=== PATIENT | female | born 1955 | race Caucasian/White ===

== ENCOUNTER 2017-02-17 23:03 | Emergency (ER) | payer BC, OTHER ==
[2017-02-18 01:04] VITALS: BP 105/74
--- NOTE | 2017-02-18 01:52 | EDM.PDOC ---
ED HPI GENERAL MEDICAL PROBLEM - General Chief Complaint: Chest Pain Stated Complaint: CHEST PAINS SOB Time Seen by Provider: 02/17/17 23:31 Source of Information: Reports: Patient History Limitations: Reports: No Limitations - History of Present Illness INITIAL COMMENTS - FREE TEXT/NARRATIVE: This patient complained of sudden onset of mid chest pain lasted about 10 or 15 minutes. She broke out in sweats. Pain radiated to her left shoulder. It came back later lasted about 5 minutes she also had some nausea. She denies any history of heart disease. Her father did have a bypass. This patient has had a cholecystectomy. Her family members note that this happened right after a meal. She denies any smoking. 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 ED EXAM, GENERAL - Physical Exam Exam: See Below Exam Limited By: No Limitations General Appearance: Alert, WD/WN, No Apparent Distress Eye Exam: Bilateral Eye: Normal Inspection Throat/Mouth: Normal Inspection Head: Atraumatic Neck: Normal Inspection Respiratory/Chest: No Respiratory Distress, Lungs Clear Cardiovascular: Normal Peripheral Pulses, Regular Rate, Rhythm, No Murmur GI/Abdominal: Soft, Non-Tender Back Exam: Normal Inspection Extremities: Normal Inspection Neurological: Alert, Oriented Psychiatric: Normal Affect Skin Exam: Warm, Dry Course - Vital Signs Last Recorded V/S: Last Vital Signs Temp 35.5 C 02/17/17 23:22 Pulse 76 02/18/17 00:55 Resp 20 02/18/17 00:55 BP 105/74 02/18/17 00:55 Pulse Ox 97 02/18/17 00:55 - Orders/Labs/Meds Labs: Laboratory Tests 02/17/17 02/17/17 02/18/17 Range/Units 23:42 23:42 00:40 WBC 4.9 (4.5-11.0) K/uL RBC 3.77 (3.30-5.50) M/uL Hgb 10.8 L (12.0-15.0) g/dL Hct 33.7 L (36.0-48.0) % MCV 89 (80-98) fL MCH 29 (27-31) pg MCHC 32 (32-36) % Plt Count 196 (150-400) K/uL Neut % (Auto) 43 (36-66) % Lymph % (Auto) 44 (24-44) % [place]oula % (Auto) 11 H (2-6) % Eos % (Auto) 3 (2-4) % Baso % (Auto) 1 (0-1) % Sodium 144 (140-148) mmol/L Potassium 3.7 (3.6-5.2) mmol/L Chloride 105 (100-108) mmol/L Carbon Dioxide 29 (21-32) mmol/L Anion Gap 9.6 (5.0-14.0) mmol/L BUN 16 (7-18) mg/dL Creatinine 0.9 (0.6-1.0) mg/dL Est Cr Clr Drug Dosing 50.16 mL/min Estimated GFR (MDRD) > 60 (>60) Glucose 125 H (74-106) mg/dL Calcium 8.4 L (8.5-10.1) mg/dL Total Bilirubin 0.3 (0.2-1.0) mg/dL AST 212 H (15-37) U/L ALT 116 H (12-78) U/L Alkaline Phosphatase 92 (46-116) U/L Troponin I < 0.017 (0.000-0.056) ng/mL Total Protein 7.1 (6.4-8.2) g/dL Albumin 3.6 (3.4-5.0) g/dL Globulin 3.5 (2.3-3.5) g/dL Albumin/Globulin Ratio 1.0 L (1.2-2.2) Urine Color Yellow Urine Appearance Clear Urine pH 7.0 (4.5-8.0) Ur Specific [place] 1.010 (1.008-1.030) Urine Protein Negative (NEGATIVE) mg/dL Urine Glucose (UA) Normal (NEGATIVE) mg/dL Urine Ketones Negative (NEGATIVE) mg/dL Urine Occult Blood Negative (NEGATIVE) Urine Nitrite Negative (NEGATIVE) Urine Bilirubin Negative (NEGATIVE) Urine Urobilinogen Normal (NORMAL) mg/dL Ur Leukocyte Esterase Moderate (NEGATIVE) Urine RBC 0-5 (0-5) Urine WBC 10-20 H (0-5) Ur Epithelial Cells Many Amorphous Sediment Not seen Urine Bacteria Not seen Urine Mucus Rare - Re-Assessments/Exams Free Text/Narrative Re-Assessment/Exam: 02/19/17 07:18 This patient had multiple EKGs which showed no evidence of ischemia. EKGs are not available at time of this dictation. Chest x-ray showed normal heart size normal lung markings. Initial x-ray was a portable which I think was rotated a little bit so was done as a 2 view and that is normal. I noted slight elevation in her liver functions. She never has more than one drink per day. I think in this lady it's former likely that she passed a gallstone through the common bile duct and that caused her sudden pain. I think it's very unlikely that she has coronary artery disease. Did note that she has anemia which is normocytic. This is a healthy woman who doesn't appear to have any reason to have anemia of chronic disease. This may be early iron deficiency anemia It's been 10 years since her last colonoscopy and I think it would be loyd to have this procedure done as soon as possible 02/19/17 07:19 Departure - Departure Time of Disposition: 01:49 Disposition: Home, Self-Care 01 Condition: Fair Clinical Impression: Non-cardiac chest pain, Biliary colic, Anemia Instructions: Anemia, Nonspecific, Biliary Colic Referrals: PCP,None [Primary Care Provider] - Forms: ED Department Discharge Additional Instructions: Your chest pain was most likely caused by the passage of a very small gallstone. This can happen even though you do not have a gallbladder. Your liver function tests are slightly elevated. If you did pass a small stone in those tests should go back to normal within a few days. Your Dr. can decide if you need to have the test repeated You are slightly anemic and this could be a sign of blood loss possibly from the colon. Talk to your doctor about this. I recommend that you have a colonoscopy now and may be other tests to determine the cause of the anemia
--- NOTE | 2017-02-19 09:10 | CR ---
Chest 1V Frontal HISTORY: Chest pain. FINDINGS: Cardiac size and pulmonary vessels are normal. The lungs are clear. IMPRESSION: Negative AP chest.
--- NOTE | 2017-02-19 09:11 | CR ---
Chest 2V HISTORY: Chest pain. COMPARISON: 02/17/2017. FINDINGS: Cardiac size and pulmonary vessels normal. There are no infiltrates or effusions. No pneumo thorax. The osseous structures appear normal. IMPRESSION: No acute pulmonary disease.
== END 2017-02-18 01:56 | disposition home or self-care (01) ==
LOC: JP.ED 23:03
DX: R07.89 Other chest pain (principal); K80.50 Calculus of bile duct without cholangitis or cholecystitis without obstruction; D64.9 Anemia, unspecified; E03.9 Hypothyroidism, unspecified; Z79.899 Other long term (current) drug therapy; Z90.49 Acquired absence of other specified parts of digestive tract
CPT/HCPCS: 36415; 71010; 71010-26; 71020; 71020-26; 80053; 81001; 84484; 85025; 93005; 99285-25